=== PATIENT | female | born 1995 | race African-American/Black ===

== ENCOUNTER 2017-11-04 11:37 | Emergency (ER) | payer SELFPAY ==
[~2017-11-04] VITALS: Ht 162.6 cm; Wt 63.6 kg
[2017-11-04] MEDS ORDERED: DEPOP150I IM (11:40)
[2017-11-04 11:42] VITALS: BP 110/68
== END 2017-11-04 11:50 | disposition left against medical advice (07) ==
LOC: EMS 11:43
DX: R51 Headache (principal); Z53.21 Procedure and treatment not carried out due to patient leaving prior to being seen by health care provider